=== PATIENT | female | born 1955 | race African-American/Black ===

== ENCOUNTER 2019-05-02 18:23 | Inpatient (IN) | payer BC ==
[~2019-05-02] VITALS: Ht 165.1 cm; Wt 71.3 kg
[2019-05-02 18:29] VITALS: Ht 165.1 cm; Wt 71.3 kg
[2019-05-02 20:58] LABS: microscopic required? YES; urine erythrocyte NEGATIVE (NEGATIVE)
[2019-05-02 21:05] LABS: PLATELET COUNT 256 x10^3mcL (130-400)
[2019-05-02 21:18] LABS: RED CELL DISTRIBUTION WIDTH 15.2 % (11.5-14.5)
[2019-05-02 21:19] LABS: BASOPHIL % 0 % (0-2); CALCIUM 8.9 mg/dL (8.5-10.1); CHLORIDE SERUM 102 mmol/L (98-107); CREATININE SERUM 0.9 mg/dL (0.6-1.0); GFR1 > 60 mL/min; GLUCOSE SERUM 87 mg/dL (74-106); POTASSIUM SERUM 3.9 mmol/L (3.5-5.1); SODIUM SERUM 139 mmol/L (136-145)
[2019-05-02 21:24] LABS: ALBUMIN 3.4 g/dL (3.4-5.0); ALKALINE PHOSPHATASE 67 U/L (46-116); ALT/SGPT 28 U/L (14-59); AST/SGOT 32 U/L (15-37); BILIRUBIN TOTAL 0.4 mg/dL (0.20-1.00); LIPASE 170 IU/L (73-393); TOTAL PROTEIN, SERUM 7.5 g/dL (6.4-8.2)
[2019-05-02 23:07] VITALS: BP 137/77
[2019-05-03 00:52] LABS: RED BLOOD CELLS 4.07 M/mm3 (4.10-5.10)
[2019-05-03 00:59] LABS: CHOLESTEROL/HDL RATIO 1.9; MAGNESIUM 1.7 mg/dL (1.8-2.4); PHOSPHOROUS 3.5 mg/dL (2.5-4.9)
[2019-05-03 01:08] LABS: FREE T4 0.92 ng/dL (0.76-1.46); FREE THYROXINE INDEX 1.9 ug/dL (1.4-4.5); T4(THYROXINE) 5.2 ug/dL (4.7-13.3)
[2019-05-03 02:04] LABS: TOTAL IRON BINDING CAPACITY 299 ug/dL (250-450)
[2019-05-03 02:05] LABS: IRON 19 ug/dL (50-170)
[2019-05-03 02:10] LABS: T3 TOTAL 0.83 ng/mL
[2019-05-03 05:41] VITALS: BP 170/74
[2019-05-03 07:14] LABS: CHLORIDE SERUM 104 mmol/L (98-107); CREATININE SERUM 0.9 mg/dL (0.6-1.0); GFR1 > 60 mL/min; GLUCOSE SERUM 78 mg/dL (74-106); MAGNESIUM 1.7 mg/dL (1.8-2.4); PHOSPHOROUS 5.4 mg/dL (2.5-4.9); POTASSIUM SERUM 3.7 mmol/L (3.5-5.1); SODIUM SERUM 139 mmol/L (136-145)
[2019-05-03 07:15] LABS: PLATELET COUNT 234 x10^3mcL (130-400)
[2019-05-03 07:31] LABS: RED CELL DISTRIBUTION WIDTH 15.2 % (11.5-14.5)
[2019-05-03 07:43] LABS: CALCIUM 8.3 mg/dL (8.5-10.1)
[2019-05-03 08:20] VITALS: BP 162/84
[2019-05-03 11:45] LABS: BAND NEUTROPHIL 0 % (0-10); BASOPHIL 0 % (0-2); MONOCYTE 5 % (0-7); SEGMENTED NEUTROPHILS 74 % (37-75)
[2019-05-03 11:47] LABS: PLATELET MORPHOLOGY PLATELETS INCREASED; rbc morphology (normal/abnorm) ABNORMAL (NORMAL)
[2019-05-03 12:44] VITALS: BP 134/77
[2019-05-03 16:03] VITALS: BP 161/84
[2019-05-03 20:48] VITALS: BP 156/87
[2019-05-04 05:32] VITALS: BP 165/88
[2019-05-04 05:47] VITALS: BP 159/85
[2019-05-04 08:25] LABS: PLATELET COUNT 246 x10^3mcL (130-400)
[2019-05-04 08:33] LABS: RED CELL DISTRIBUTION WIDTH 15.4 % (11.5-14.5)
[2019-05-04 08:40] VITALS: BP 150/85
[2019-05-04 09:30] LABS: CALCIUM 8.6 mg/dL (8.5-10.1); CARBON DIOXIDE 27.3 mmol/L (21-32); CHLORIDE SERUM 105 mmol/L (98-107); CREATININE SERUM 0.6 mg/dL (0.6-1.0); GFR1 > 60 mL/min; GLUCOSE SERUM 105 mg/dL (74-106); MAGNESIUM 1.7 mg/dL (1.8-2.4); PHOSPHOROUS 3.2 mg/dL (2.5-4.9); POTASSIUM SERUM 3.8 mmol/L (3.5-5.1); SODIUM SERUM 140 mmol/L (136-145)
[2019-05-04 10:46] LABS: BAND NEUTROPHIL 1 % (0-10); BASOPHIL 0 % (0-2); MONOCYTE 8 % (0-7); PLATELET MORPHOLOGY PLATELETS DECREASED; SEGMENTED NEUTROPHILS 72 % (37-75)
[2019-05-04 10:53] LABS: ovalocyte/elliptocyte 2+; rbc morphology (normal/abnorm) ABNORMAL (NORMAL)
[2019-05-04 12:26] VITALS: BP 150/84
[2019-05-04] MEDS ORDERED: NOR5 PO (12:54)
[2019-05-04 13:15] VITALS: BP 150/84
== END 2019-05-04 14:45 | disposition home or self-care (01) | DRG 73 ==
LOC: EDBD 18:23 → ED 18:23 → MU 22:01 → DU 22:01 → MU 05-03 15:26
PROVIDERS: Emergency Medicine; ADMIT General Practice
DX: G90.8 Other disorders of autonomic nervous system (principal); N17.0 Acute kidney failure with tubular necrosis; N39.0 Urinary tract infection, site not specified; D50.9 Iron deficiency anemia, unspecified; E86.0 Dehydration; I11.0 Hypertensive heart disease with heart failure; J06.9 Acute upper respiratory infection, unspecified
CPT/HCPCS: 83880; 84439; 87804; 90658; 97116-GP; G0378; J0360; J1200; J1885; J2765; J7030; Q0092

== ENCOUNTER 2019-07-15 10:17 | Emergency (ER) | payer OTHER ==
[~2019-07-15] VITALS: Ht 165.1 cm; Wt 73.5 kg
[~2019-07-15 10:17] MED LIST: NOR5 PO
[2019-07-15 10:32] VITALS: Ht 165.1 cm; Wt 73.5 kg
[2019-07-15 13:36] VITALS: BP 149/77
== END 2019-07-15 13:36 | disposition home or self-care (01) ==
LOC: ED 10:17
DX: M25.461 Effusion, right knee (principal); W10.8XXA Fall (on) (from) other stairs and steps, initial encounter; Y93.89 Activity, other specified; Y92.89 Other specified places as the place of occurrence of the external cause; Y99.0 Civilian activity done for income or pay